=== PATIENT | male | born 1990 | race Caucasian/White ===

== ENCOUNTER 2019-01-31 03:34 | Emergency (ER) | payer BC, SELFPAY ==
[2019-01-31] MEDS ORDERED: Lidocaine 1% PF 5 ML VIAL ONE (03:49)
[2019-01-31] MEDS ORDERED: Adacel (T-DAP) 0.5 ML SYRINGE ONE (04:57)
--- NOTE | 2019-01-31 07:32 | RAD ---
LEFT INDEX FINGER: DATE: 01/31/2019. FINDINGS: Laceration of the tip of the finger is noted. The underlying bone appears intact with no fracture ev ident. No opaque foreign was seen. IMPRESSION: Soft tissue injury. POS: HOME
== END 2019-01-31 05:00 | disposition home or self-care (01) ==
LOC: BURERS 03:34
DX: S61.211A Laceration without foreign body of left index finger without damage to nail, initial encounter (principal); F17.210 Nicotine dependence, cigarettes, uncomplicated; W26.8XXA Contact with other sharp object(s), not elsewhere classified, initial encounter
CPT/HCPCS: 12002; 90471; 90715; J2001

== ENCOUNTER 2021-01-24 14:53 | Emergency (ER) | payer SELFPAY ==
[2021-01-24] MEDS ORDERED: Dexamethasone 10 MG/ML VIAL ONE (15:25)
[2021-01-24] MEDS ORDERED: Albuterol 200 PUFF (6.7GM INHALER) INH SCH (15:30)
[2021-01-24] MEDS ORDERED: Dexamethasone 10 MG/ML VIAL SLOW IVP SCH (15:30)
[2021-01-25 00:41] LABS: SARS-CoV-2 PCR by NAA Not Detected (NotDetected)
== END 2021-01-24 15:27 | disposition home or self-care (01) ==
LOC: BURERS 14:53
DX: B34.9 Viral infection, unspecified (principal); J98.01 Acute bronchospasm; F17.210 Nicotine dependence, cigarettes, uncomplicated; Z20.822 Contact with and (suspected) exposure to COVID-19
CPT/HCPCS: 99283; J1100; U0003; U0005

== ENCOUNTER 2021-03-03 18:29 | Emergency (ER) | payer SELFPAY ==
[2021-03-03] MEDS ORDERED: traMADol HCl 50 MG TAB ONE (18:58)
[2021-03-03] MEDS ORDERED: Ibuprofen 800 MG TAB ONE (18:58)
== END 2021-03-03 19:40 | disposition home or self-care (01) ==
LOC: BURERS 18:29
DX: S39.012A Strain of muscle, fascia and tendon of lower back, initial encounter (principal); X50.0XXA Overexertion from strenuous movement or load, initial encounter; F17.210 Nicotine dependence, cigarettes, uncomplicated
CPT/HCPCS: 72100

== ENCOUNTER 2021-06-30 20:33 | Emergency (ER) | payer SELFPAY ==
[2021-06-30] MEDS ORDERED: Ketorolac Tromethamine 30 MG/ML VIAL ONE (21:18)
== END 2021-06-30 21:29 | disposition home or self-care (01) ==
LOC: BURERS 20:33
DX: S80.12XA Contusion of left lower leg, initial encounter (principal); W22.8XXA Striking against or struck by other objects, initial encounter; Y99.0 Civilian activity done for income or pay; F17.210 Nicotine dependence, cigarettes, uncomplicated
CPT/HCPCS: 96372; 99283; J1885

== ENCOUNTER 2021-11-08 09:48 | Emergency (ER) | payer SELFPAY ==
[2021-11-08] MEDS ORDERED: Ibuprofen 800 MG TAB ONE (10:25)
== END 2021-11-08 11:17 | disposition home or self-care (01) ==
LOC: BURERS 09:48
DX: U07.1 COVID-19 (principal); J06.9 Acute upper respiratory infection, unspecified; F17.200 Nicotine dependence, unspecified, uncomplicated
CPT/HCPCS: 87804; U0003; U0005